=== PATIENT | male | born 1995 | race Caucasian/White ===

== ENCOUNTER 2020-01-29 04:15 | Emergency (ER) | payer MEDICAID, OTHER, SELFPAY ==
[~2020-01-29] VITALS: Ht 172.7 cm; Wt 151.1 kg
[2020-01-29] MEDS ORDERED: COMBIVENT RESPIMAT 100-20MCG INHALER 4GM INH ONE (04:45)
[2020-01-29 05:06] LABS: ABG BASE EXCESS -3.9 (-2.0-2.0); ABG O2 SATURATION 97.6 % (95.0-99.0); ABG PARTIAL PRESSURE CO2 42.7 mmHg (35.0-45.0); ABG PARTIAL PRESSURE O2 102.2 mmHg (75.0-100.0); ABG STANDARD HCO3 21.3 MEQ/L (22.0-26.0); ABG TOTAL CO2 23.3 MEQ/L (22.0-29.0); ABG pH (ARTERIAL) 7.329 UNITS (7.350-7.450)
[2020-01-29 05:08] LABS: HEMATOCRIT 45.5 % (42.0-52.0); HEMOGLOBIN 15.6 g/dl (13.5-17.5); MEAN CORPUSCULAR HEMOGLOBIN 30.1 pg (27.0-33.0); MEAN CORPUSCULAR HGB CONC 34.3 g/dl (32.0-36.5); MEAN CORPUSCULAR VOLUME 87.8 fl (80.0-96.0); PLATELET COUNT, AUTOMATED 255 10^3/uL (150-450); RED BLOOD COUNT 5.18 10^6/uL (4.30-6.10); WHITE BLOOD COUNT 9.4 10^3/uL (4.0-10.0)
--- NOTE | 2020-01-29 05:46 | REPVR ---
PROCEDURE INFORMATION: Exam: XR Chest, 2 Views Exam date and time: 01/29/2020 5:19 AM Age: 24 years old Clinical indication: Cough and shortness of breath; Additional info: Sob/cough TECHNIQUE: Imaging protocol: XR of the chest Views: 2 views. COMPARISON: No relevant prior studies available. FINDINGS: Lungs: There are patchy bilateral airspace opacities which are seen fairly diffusely throughout the right lung as well as within the left perihilar region, consistent with multifocal pneumonia. Pleural space: Unremarkable. No pleural effusion. No pneumothorax. Heart/Mediastinum: Unremarkable. No cardiomegaly. Bones/joints: Unremarkable. IMPRESSION: Multifocal bilateral pneumonia. Electronically signed by: Sai Perla On 01/29/2020 05:46:17 AM
[2020-01-29 05:47] LABS: AMPHETAMINES LEVEL URINE NEGATIVE (NEGATIVE); BARBITURATES URINE NEGATIVE (NEGATIVE); BENZODIAZEPINES URINE NEGATIVE (NEGATIVE); CANNABINOIDS URINE NEGATIVE (NEGATIVE); COCAINE METABOLITE URINE POSITIVE (NEGATIVE); METHADONE URINE NEGATIVE (NEGATIVE); OPIATES URINE POSITIVE (NEGATIVE); PHENCYCLIDINE URINE NEGATIVE (NEGATIVE)
[2020-01-29 06:00] LABS: ACETAMINOPHEN LEVEL < 2.0 UG/ML (10.0-30.0); ALBUMIN 3.5 GM/DL (3.2-5.2); ALT/SGPT 69 U/L (12-78); BILIRUBIN,DIRECT 0.3 MG/DL (0.0-0.2); BILIRUBIN,TOTAL 0.8 MG/DL (0.2-1.0); BLOOD UREA NITROGEN 12 MG/DL (7-18); CALCIUM LEVEL 8.2 MG/DL (8.5-10.1); CARBON DIOXIDE LEVEL 26 MEQ/L (21-32); CHLORIDE LEVEL 107 MEQ/L (98-107); CREATININE FOR GFR 0.94 MG/DL (0.70-1.30); ETHYL ALCOHOL (ETHANOL) < 0.003 % (0.000-0.010); GLOMERULAR FILTRATION RATE > 60.0 (>60); GLUCOSE, FASTING 86 MG/DL (70-100); POTASSIUM SERUM 4.1 MEQ/L (3.5-5.1); SALICYLATE LEVEL < 1.7 MG/DL (5.0-30.0); SODIUM LEVEL 143 MEQ/L (136-145); TOTAL PROTEIN 7.3 GM/DL (6.4-8.2)
[2020-01-29] MEDS ORDERED: PIPERACILLIN/TAZOBACTAM SOD 4.5 GM in D5W MINI-BAG PLUS 50 ML IV ONE (06:15)
[2020-01-29 07:03] VITALS: BP 125/74
--- NOTE | 2020-01-29 08:48 | ECGEPIP ---
[facility] - ED Test Date: 2020-01-29 Pat Name: JOSÉ LUIS LOPEZ Department: Room: - Gender: Male Systems Software Manager: [email or web address] : [id number] Requested By: BROWN Mcelroy Order Number: [id number] Reading MD: Neal Veloz Measurements Intervals [place] Rate: 96 P: 42 DE: 152 QRS: 25 QRSD: 101 T: 30 QT: 341 QTc: 432 Interpretive Statements SINUS RHYTHM IVCD NO PRIOR ECG FOR COMPARISON Electronically Signed on 01-29-2020 8:48:15 EDT by Neal Veloz
== END 2020-01-29 07:26 | disposition left against medical advice (07) ==
LOC: M ED 04:15
DX: T40.1X1A Poisoning by heroin, accidental (unintentional), initial encounter (principal); X58.XXXA Exposure to other specified factors, initial encounter; Y92.89 Other specified places as the place of occurrence of the external cause; J69.0 Pneumonitis due to inhalation of food and vomit; F33.9 Major depressive disorder, recurrent, unspecified
CPT/HCPCS: 36415; 36600; 71046; 80048; 80076; 80307; 82803; 84443; 85027; 93005; 93041; 94640; 96360; 99285; G0480; J2543

== ENCOUNTER 2023-05-04 09:03 | Day surgery (SDC) | payer OTHER ==
[~2023-05-04] VITALS: Ht 172.7 cm; Wt 109.5 kg
[~2023-05-04 09:03] MED LIST: AMPICILLIN SOD/SULBACTAM SOD 3 GM in D5W MINI-BAG PLUS 100 ML IV ONE
[2023-05-04] MEDS ORDERED: LR 1,000 ML IV SCH ×2 (09:15→11:25)
[2023-05-04] MEDS ORDERED: ESMOLOL INJ 100MG/10ML VIAL As Ordered ONE (09:53)
[2023-05-04] MEDS ORDERED: MIDAZOLAM INJ 2MG/2ML VIAL As Ordered ONE (09:53)
[2023-05-04] MEDS ORDERED: LIDOCAINE 2% W/ EPINEPHRINE 1.7 ML DENTAL INJ As Ordered ONE (10:00)
[2023-05-04] MEDS ORDERED: propofoL 200 MG/20 ML VIAL As Ordered ONE (10:20)
[2023-05-04] MEDS ORDERED: SUGAMMADEX SODIUM 500 MG/5 ML VIAL (BRIDION) As Ordered ONE (10:21)
[2023-05-04] MEDS ORDERED: LIDOCAINE 2% 100MG/5ML SDV (FOR ANES.) As Ordered ONE (10:21)
[2023-05-04] MEDS ORDERED: ROCURONIUM BROMIDE 50MG/5ML VIAL As Ordered ONE (10:21)
[2023-05-04] MEDS ORDERED: ACETAMINOPHEN 1000MG 100ML IV BAG As Ordered ONE (10:51)
[2023-05-04] MEDS ORDERED: GLYCOPYRROLATE INJ 0.2 MG/ML 2 ML VIAL As Ordered ONE (10:53)
[2023-05-04] MEDS ORDERED: dexmedeTOMIDine (4MCG/ML)200MCG/50ML BTL (PRECEDEX) As Ordered ONE (10:59)
[2023-05-04] MEDS ORDERED: oxyCODONE 5MG TAB PO PRN (11:25)
[2023-05-04] MEDS ORDERED: ONDANSETRON 4MG 2ML VIAL IV PRN (11:25)
[2023-05-04] MEDS ORDERED: fentaNYL 100 MCG/2 ML INJECTION IV PRN (11:25)
[2023-05-04] MEDS ORDERED: HYDROMORPHONE HCL 0.5 MG/ 0.5 ML SYRINGE IV PRN (11:25)
[2023-05-04 12:45] VITALS: BP 132/80; TEMP 97.2; O2SAT 98
== END 2023-05-04 12:50 | disposition home or self-care (01) ==
LOC: M SDC 09:03
PROVIDERS: ATTEND Dentist
DX: K02.9 Dental caries, unspecified (principal); F12.10 Cannabis abuse, uncomplicated
CPT/HCPCS: 88300; C9290; D7210; D9223; J0131; J0295; J1805; J2250